=== PATIENT | female | born 1960 | race Caucasian/White ===

== ENCOUNTER 2022-12-28 10:33 | Day surgery (SDC) | payer BC ==
[2022-12-28] VITALS (15 sets, daily range): BP systolic 89–138; BP diastolic 48–84
[~2022-12-28] VITALS: Ht 175.3 cm; Wt 99.1 kg
[2022-12-28] MEDS ORDERED: normal saline 1000ml 1,000 ML IV SCH (11:00)
[2022-12-28] MEDS ORDERED: BUPR-344 PO (11:16)
[2022-12-28] MEDS ORDERED: GABA300C PO (11:16)
[2022-12-28] MEDS ORDERED: MELO-102 PO (11:16)
[2022-12-28] MEDS ORDERED: CHOL125C7 PO (11:16)
[2022-12-28] MEDS ORDERED: CALC300T4 PO (11:16)
[2022-12-28] MEDS ORDERED: ASCO500T19 PO (11:16)
[2022-12-28] MEDS ORDERED: ARIP5TAB14 PO (11:16)
[2022-12-28] MEDS ORDERED: EXEM25TA5 PO (11:16)
[2022-12-28 11:49] LABS: BASOPHILS # (AUTO) 0.1 X10'3 (0-0.2); BASOPHILS % (AUTO) 0.6 % (0-1); EOSINOPHILS # (AUTO) 0.2 X10'3 (0-0.9); EOSINOPHILS % (AUTO) 1.8 % (0-6); HEMATOCRIT 39.4 % (35.0-45.0); HEMOGLOBIN 13.3 g/dl (12.0-16.0); LYMPHOCYTES # (AUTO) 1.4 X10'3 (1.1-4.8); LYMPHOCYTES % (AUTO) 13.7 % (21-51); MEAN CORPUSCULAR HEMOGLOBIN 30.5 PG (27.0-31.0); MEAN CORPUSCULAR HGB CONC 33.9 g/dL (33.0-36.5); MEAN CORPUSCULAR VOLUME 90.2 FL (78-98); MEAN PLATELET VOLUME 6.9 FL (7.4-10.4); MONOCYTES # (AUTO) 0.8 X10'3 (0-0.9); MONOCYTES % (AUTO) 8.2 % (2-12); NEUTROPHILS # (AUTO) 7.8 X10'3 (1.8-7.7); NEUTROPHILS % (AUTO) 75.7 % (42-75); PLATELET COUNT 322 X10'3 (140-440); RED BLOOD COUNT 4.36 X10'6 (4.20-5.60); RED CELL DISTRIBUTION WIDTH 13.9 % (11.5-14.5); WHITE BLOOD COUNT 10.3 X10'3 (4.5-11.0)
[2022-12-28] MEDS ORDERED: fentaNYL/PF 50MCG/1 ML 2ML syringe ONE (12:06)
[2022-12-28] MEDS ORDERED: midazolam 1 mg/ML 2ml injection ONE (12:06)
[2022-12-28] MEDS ORDERED: gelatin sponge, absorbable (Gelfoam 12-7MM) sponge TP ONE (12:36)
[2022-12-28] MEDS ORDERED: HYDROcodone/acetaminophen 5mg/325mg tablet PO PRN (13:10)
== END 2022-12-28 15:30 | disposition home or self-care (01) ==
LOC: SSTAY O 10:33
PROVIDERS: ATTEND Radiology Vascular & Interventional Radiology
DX: K76.89 Other specified diseases of liver (principal); C78.7 Secondary malignant neoplasm of liver and intrahepatic bile duct; C50.412 Malignant neoplasm of upper-outer quadrant of left female breast; Z79.899 Other long term (current) drug therapy; Z98.890 Other specified postprocedural states
CPT/HCPCS: 36415; 47000; 77012; 85025; 85610; 99152; 99153; J2250; J3010; J7030; A4615